=== PATIENT | female | born 1980 | race Caucasian/White ===

== ENCOUNTER 2025-04-04 17:25 | Inpatient (IN) | payer OTHER, SELFPAY ==
[2025-04-04 13:39] VITALS: BP 90/62
[2025-04-04 14:11] LABS: % Basophils 0.2 % (0-2); % Eosinophils 2.3 % (0-6); % Immature Granulocytes 0.7 % (0-0.5); % Lymphocytes 4.3 % (20.5-51.1); % Monocytes 6.7 % (1.7-9.3); % Neutrophils 85.8 % (42.2-75.2); Absolute Eosinophils 0.4 10^3/uL (0-0.7); Absolute Immature Granulocytes 0.1 10^3/uL (0-0.05); Absolute Lymphocytes 0.7 10^3/uL (1.2-3.4); Absolute Neutrophils 13.2 10^3/uL (1.4-6.5); Hematocrit 38.1 % (37.0-47.0); Mean Corp Hgb Conc. 34.1 g/dL (33.0-37.0); Mean Corpuscular Hgb 29.1 pg (27.0-31.0); Mean Corpuscular Volume 85.4 fL (81.0-99.0); Mean Platelet Volume 9.6 fL (7.4-10.4); Nucleated Red Blood Cells % 0 %; Platelet Count 226 10^3/uL (130-400); Red Blood Cell Count 4.46 10^6/uL (4.20-5.40); Red Cell Dist. Width 12.5 % (11.5-14.5); White Blood Cell Count 15.4 10^3/uL (4.8-10.8)
[2025-04-04 14:24] LABS: HCG, Serum Qualitative Screen Negative
[2025-04-04 14:31] LABS: COVID-19 Antigen Negative (Negative)
[2025-04-04 14:39] VITALS: BP 121/73
[2025-04-04 14:39] LABS: ALT (SGPT) 14 U/L (0-35); AST (SGOT) 20 U/L (14-36); Albumin 4.6 g/dl (3.5-5.0); Alkaline Phosphatase 38 U/L (38-126); Blood Urea Nitrogen 13 mg/dl (7-17); Calcium 9.1 mg/dl (8.4-10.2); Carbon Dioxide 24 mmol/L (22-30); Chloride 103 mmol/L (98-107); Glucose 125 mg/dl (70-99); Potassium 3.9 mmol/L (3.5-5.1); Sodium 135 mmol/L (135-145); Total Bilirubin 0.8 mg/dl (0.2-1.3); Total Protein 7.2 g/dl (6.3-8.2); eGFR > 60.00
[2025-04-04 15:00] VITALS: BP 124/66
[2025-04-04 15:02] LABS: Urine Albumin 3+ (Neg - Trace); Urine Bilirubin Negative (Negative); Urine Character Clear (Clear); Urine Color Yellow; Urine Glucose Negative (Negative); Urine Ketone Negative (Negative); Urine Leukocyte 1+ (Negative); Urine Nitrite Negative (Negative); Urine Occult Blood 4+ (Negative); Urine Specific Gravity 1.025 (<1.030); Urine Urobilinogen Negative (Neg - 1+)
--- NOTE | 2025-04-04 15:05 | ED.GENMED ---
History of Present Illness
<ELVA Richard - Last Filed: 04/04/25 21:20>
General
Chief Complaint: Fever
Source: patient and spouse
Time Seen by Provider: 04/04/25 14:32
History of Present Illness
History of Present Illness:
This is a 44 y/o F with a PMH of UTI s/p 5-day course nitrofurantoin who presents with fever x 1 day. She reports having a UTI last week with symptoms that include dysuria, frequency and dull low back pain for which she went to urgent care for.
There was reportedly blood in her urine for which she believed was the start of her menstrual period. She was put on a 5 day course of nitrofurantoin for which she finished on friday, 04/02. Those symptoms have since subsided. On Friday evening,
04/03, she began feeling fatigued and developed a fever overnight. reports a Tmax of 100F at home. She did not take an antipyretic. There is now a dull, constant low back pain that feels better when palpated. She went to urgent care this
morning with fever, back pain and shortness of breath. She feels as though she cannot take in a deep breath. There was reportedly a questionable chest x ray with low O2 sats so she was advised to come to ED. She denies dysuria, urinary frequency,
urinary incontinence suprapubic pain, flank pain, nausea, vomiting, pleuritic chest pain.
She denies a PMH of nephrolithiasis or pyelonephritis. Surgical history noncontributory. Family history noncontributory. No allergies to medications. LMP 03/05/2025.
Past History
<ELVA Richard - Last Filed: 04/04/25 21:20>
Past History
ED Past Medical History: None
Social History
Tobacco: Non-smoker
Personal:
Living: with family
Review of Systems
<ELVA Richard - Last Filed: 04/04/25 21:20>
Review of Systems
Constitutional: Reports fever, fatigue and chills
EENT: Reports no symptoms
Respiratory: Reports cough
Cardiac: Reports no symptoms
ABD/GI: Denies abdominal pain, nausea or vomiting
: Denies dysuria, flank pain or incontinence
Musculoskeletal: Reports back pain
Phy Exam
<Darline Gee [facility] Last Filed: 04/04/25 21:20>
General Physical Exam
General Presentation: mild distress
General age: appears stated age
General Skin: warm
General Habitus: normal
General Mental: alert
Cardiovascular Exam
Cardiovascular Exam: regular rate/rhythm
Pulmonary Exam
Pulmonary Exam: lungs clear and other (cough)
Gastrointestinal Exam
Gastrointestinal Exam: normal bowel sounds, non tender, soft, non distended and no cva tenderness
Neurological Exam
Neurological Exam: alert and oriented x3
Musculoskeletal Exam
Musculoskeletal Exam: back pain
Sepsis
<Darline Gee [facility] Last Filed: 04/04/25 21:20>
Sepsis Screening
Sepsis Assessment: Sepsis
Sepsis Screen
Sepsis Screen: Sepsis
Date: 04/04/25
Time: 21:15
Course
<Darline Gee [facility] Last Filed: 04/04/25 21:20>
Orders/Labs/Results
Orders:
Orders
04/04/25 13:48
CR Chest - 2 Views Urgent
Comment:
Reason For Exam: cough, SOB
04/04/25 13:50
Test Result ONCE
04/04/25 13:54
COVID-19 Antigen Urgent
Source: Nasal Swab
Complete Blood Count/With Diff Urgent
Comprehensive Metabolic Panel Urgent
HCG, Serum Qualitative Screen Urgent
Influenza A+B Rapid Molecular Urgent
MORGAN Source: Nasal Swab
Specimen Description:
Date Specimen was Collected: 04/04/25
Time Specimen was Collected: 13:49
04/04/25 14:38
Urinalysis Reflex To Culture Urgent
Date Specimen was Collected: 04/04/25
Time Specimen was Collected: 13:49
Urine Microscopic Reflex Cult Urgent
Urine Culture Urgent
MORGAN Source: U
Specimen Description:
Date Specimen was Collected: 04/04/25
Time Specimen was Collected: 13:49
04/04/25 14:58
IV Insert/Care/Rem.- Treatment PRN
0.9% Sodium Chloride 1000 ml [Nss] 2,000 ml IV NOW STA
Cefepime HCl [Maxipime] 2,000 mg IV NOW STA
04/04/25 15:00
CT Pe/abd/pel W Urgent
Reason For Exam: Short of breath/hypoxia/fever
Regular
At Your Request: Full Participation
Acetaminophen [Tylenol] 1,000 mg PO NOW STA
04/04/25 15:17
Lactic Acid Q4H
Comment: CANCEL 2nd LACTIC ACID IF 1st LACTIC ACID IS LESS THAN 2
Blood Culture Q30M
MORGAN Source: Blood/Venous
Specimen Description:
Blood Culture Q30M
MORGAN Source: Blood/Venous
Specimen Description:
04/04/25 17:18
Admit/Transfer Patient As Directed
Co-Sign Provider:
Level of Care: Inpatient admission
Assign to:: Medical/Surgical
Physician / Group: louie
Diagnosis: sepsis uti
Reason for Hospitalization: sepsis uti
Expected length of stay greater than two midnights?: Yes
ELOS- Estimated Length of Stay in days: 2
I certify the patient meets the requirements for IP care: Yes
PRN Pain Medication Management As Directed
May give lesser potent ordered pain med per pt: Yes
preference::
Protocol:: Medication orders for pain may be administered in a
manner that supports deferring to patient preference
when the pt is:
- Requesting an ordered lesser potent pain medication.
Least to most potent pain medications are defined
as: acetaminophen < NSAID < tramadol < opioids
(morphine, oxycodone, hydromorphone).
- Requesting a lesser dose of the same medication IF
ORDERED.
- Requesting a less intrusive route of administration
if both routes are prescribed by the provider (PO <
IV).
04/04/25 17:19
Code Status As Directed
Resuscitation Status: Full Code
04/04/25 19:23
0.9% Sodium Chloride 1000 ml [Nss] 1,000 ml IV 100 mls/hr
Acetaminophen [Tylenol] 650 mg PO Q4HPRN PRN
04/04/25 19:23
Activity As Directed
Activity Level: As Tolerated
Vital Signs As Directed
Frequency: Per unit guidelines
DX Deep Vein Thrombosis Video Routine
04/04/25 20:00
Heparin 5,000 units SC Q12
04/05/25 00:00
Cefepime HCl [Maxipime] 2,000 mg IV Q12H
04/05/25 06:00
Complete Blood Count/With Diff IN AM
Comprehensive Metabolic Panel IN AM
04/05/25 08:00
Lactobac/Bifidobac [Visbiome] 1 cap PO DAILY
vitamin D3-vitamin K2 1 cap PO DAILY
Abnormal Lab Results
04/04/25 04/04/25
13:54 14:38
WBC 15.4 H 10^3/uL
(4.8-10.8)
Abs Immat Gran (auto) 0.1 H 10^3/uL
(0-0.05)
Absolute Neuts (auto) 13.2 H 10^3/uL
(1.4-6.5)
Absolute Lymphs (auto) 0.7 L 10^3/uL
(1.2-3.4)
Absolute Monos (auto) 1.0 H 10^3/uL
(0.1-0.6)
Immature Gran % 0.7 H %
(0-0.5)
Neutrophils % 85.8 H %
(42.2-75.2)
Lymphocytes % 4.3 L %
(20.5-51.1)
Glucose 125 H mg/dl
(70-99)
Ur Occult Blood Reflex 4+ A
(Negative)
Leukocyte Esterase Rfl 1+ A
(Negative)
Urine RBC 3-6 A /HPF
(0-2)
Urine Bacteria (Reflex) Many A
(Negative)
Urine Yeast Few A
(Negative)
Urine Albumin (Reflex) 3+ A
(Neg - Trace)
04/04/25 13:54
04/04/25 13:54
Vital Signs
Initial and Last Documented VS:
Initial Vital Signs
Temp Pulse Resp BP Pulse Ox
103.1 F H 93 18 90/62 94
04/04/25 13:39 04/04/25 13:39 04/04/25 13:39 04/04/25 13:39 04/04/25 13:39
Last Documented Vital Signs
Temp Pulse Resp BP Pulse Ox
99.6 F 78 17 109/70 93
04/04/25 19:28 04/04/25 19:28 04/04/25 19:28 04/04/25 19:28 04/04/25 19:28
<Thad Lazar MD - Last Filed: 04/04/25 16:40>
Orders/Labs/Results
Orders:
Orders
04/04/25 13:48
CR Chest - 2 Views Urgent
Comment:
Reason For Exam: cough, SOB
04/04/25 13:50
Test Result ONCE
04/04/25 13:54
COVID-19 Antigen Urgent
Source: Nasal Swab
Complete Blood Count/With Diff Urgent
Comprehensive Metabolic Panel Urgent
HCG, Serum Qualitative Screen Urgent
Influenza A+B Rapid Molecular Urgent
MORGAN Source: Nasal Swab
Specimen Description:
Date Specimen was Collected: 04/04/25
Time Specimen was Collected: 13:49
04/04/25 14:38
Urinalysis Reflex To Culture Urgent
Date Specimen was Collected: 04/04/25
Time Specimen was Collected: 13:49
Urine Microscopic Reflex Cult Urgent
Urine Culture Urgent
MORGAN Source: U
Specimen Description:
Date Specimen was Collected: 04/04/25
Time Specimen was Collected: 13:49
04/04/25 14:58
IV Insert/Care/Rem.- Treatment PRN
0.9% Sodium Chloride 1000 ml [Nss] 2,000 ml IV NOW STA
Cefepime HCl [Maxipime] 2,000 mg IV NOW STA
04/04/25 15:00
CT Pe/abd/pel W Urgent
Reason For Exam: Short of breath/hypoxia/fever
Regular
At Your Request: Full Participation
Acetaminophen [Tylenol] 1,000 mg PO NOW STA
04/04/25 15:17
Lactic Acid Q4H
Comment: CANCEL 2nd LACTIC ACID IF 1st LACTIC ACID IS LESS THAN 2
Blood Culture Q30M
MORGAN Source: Blood/Venous
Specimen Description:
Blood Culture Q30M
MORGAN Source: Blood/Venous
Specimen Description:
04/04/25 17:18
Admit/Transfer Patient As Directed
Co-Sign Provider:
Level of Care: Inpatient admission
Assign to:: Medical/Surgical
Physician / Group: louie
Diagnosis: sepsis uti
Reason for Hospitalization: sepsis uti
Expected length of stay greater than two midnights?: Yes
ELOS- Estimated Length of Stay in days: 2
I certify the patient meets the requirements for IP care: Yes
PRN Pain Medication Management As Directed
May give lesser potent ordered pain med per pt: Yes
preference::
Protocol:: Medication orders for pain may be administered in a
manner that supports deferring to patient preference
when the pt is:
- Requesting an ordered lesser potent pain medication.
Least to most potent pain medications are defined
as: acetaminophen < NSAID < tramadol < opioids
(morphine, oxycodone, hydromorphone).
- Requesting a lesser dose of the same medication IF
ORDERED.
- Requesting a less intrusive route of administration
if both routes are prescribed by the provider (PO <
IV).
04/04/25 17:19
Code Status As Directed
Resuscitation Status: Full Code
04/04/25 19:23
0.9% Sodium Chloride 1000 ml [Nss] 1,000 ml IV 100 mls/hr
Acetaminophen [Tylenol] 650 mg PO Q4HPRN PRN
04/04/25 19:23
Activity As Directed
Activity Level: As Tolerated
Vital Signs As Directed
Frequency: Per unit guidelines
DX Deep Vein Thrombosis Video Routine
04/04/25 20:00
Heparin 5,000 units SC Q12
04/05/25 00:00
Cefepime HCl [Maxipime] 2,000 mg IV Q12H
04/05/25 06:00
Complete Blood Count/With Diff IN AM
Comprehensive Metabolic Panel IN AM
04/05/25 08:00
Lactobac/Bifidobac [Visbiome] 1 cap PO DAILY
vitamin D3-vitamin K2 1 cap PO DAILY
Abnormal Lab Results
04/04/25 04/04/25
13:54 14:38
WBC 15.4 H 10^3/uL
(4.8-10.8)
Abs Immat Gran (auto) 0.1 H 10^3/uL
(0-0.05)
Absolute Neuts (auto) 13.2 H 10^3/uL
(1.4-6.5)
Absolute Lymphs (auto) 0.7 L 10^3/uL
(1.2-3.4)
Absolute Monos (auto) 1.0 H 10^3/uL
(0.1-0.6)
Immature Gran % 0.7 H %
(0-0.5)
Neutrophils % 85.8 H %
(42.2-75.2)
Lymphocytes % 4.3 L %
(20.5-51.1)
Glucose 125 H mg/dl
(70-99)
Ur Occult Blood Reflex 4+ A
(Negative)
Leukocyte Esterase Rfl 1+ A
(Negative)
Urine RBC 3-6 A /HPF
(0-2)
Urine Bacteria (Reflex) Many A
(Negative)
Urine Yeast Few A
(Negative)
Urine Albumin (Reflex) 3+ A
(Neg - Trace)
04/04/25 13:54
04/04/25 13:54
Vital Signs
Initial and Last Documented VS:
Initial Vital Signs
Temp Pulse Resp BP Pulse Ox
103.1 F H 93 18 90/62 94
04/04/25 13:39 04/04/25 13:39 04/04/25 13:39 04/04/25 13:39 04/04/25 13:39
Last Documented Vital Signs
Temp Pulse Resp BP Pulse Ox
99.6 F 78 17 109/70 93
04/04/25 19:28 04/04/25 19:28 04/04/25 19:28 04/04/25 19:28 04/04/25 19:28
<ELVA Richard - Last Filed: 04/04/25 21:20>
MDM/Problems Addressed
Differential Diagnosis Includes:
Partially treated pyelonephritis vs hydronephrosis vs PE vs viral infection
MDM/Problems Addressed:
This is a 44 y/o F with a PMH of UTI s/p 5-day course nitrofurantoin who presents with fever x 1 day, low back pain, shortness of breath and headache. Temp 103.1, borderline low O2 sats. WBC 15.4. U/A contaminated specimen. No pathology noted on CT
chest/abd/pelvis. Due to meeting SIRS criteria with no definitive source of infection, recommend admission to medicine.
<ELVA Richard - Last Filed: 04/04/25 21:20>
*Critical Care Note
Total Time (30-74mins, 75-104mins- exclusive of procedures): Not Applicable
<Thad Lazar MD - Last Filed: 04/04/25 16:40>
*Radiology
Radiology exam reviewed: preliminary read by ED provider (Negative chest x-ray) and other (No obvious acute findings on CT. No pulmonary emboli. No pneumonia. No pyelonephritis. No obstructing stone. No obvious appendicitis although not
visualized.)
*Pulse Oximetry
Patient hypoxic: no (92%)
<Thad Lazar MD - Last Filed: 04/04/25 16:40>
Update Note
Update Note:
Patient appears better after fluids and Tylenol. However pulse ox still remains 92%. No definitive explanation for her symptom complex. Still leaning towards a partially treated pyelonephritis. At this time warrants inpatient management
antibiotics cultures
ED Attending Note
<ELVA Richard - Last Filed: 04/04/25 21:20>
-
Portions of this chart may have been created with voice recognition software.� Occasional wrong word or��sound alike� substitutions may have occurred due to the inherent limitations of voice recognition software.
<Thad Lazar MD - Last Filed: 04/04/25 16:40>
ED Attending Note
Patient seen and examined by attending physician: Yes
I performed the substantive portion of visit, reviewed & personally made and approve the management plan that is documented in note by myself or UMBERTO.: Yes
ED Attending Note:
44-year-old healthy female treated via a telehealth call about a week ago for presumed UTI. Had urgency frequency dysuria at that time some low back pain. Was treated with Macrodantin. Urinary symptoms resolved however low back pain continued she
developed fever overnight. Also noted to have a slight cough. Noted to be hypoxic via urgent care is sent here for further care.
On exam patient is a healthy appearing 44-year-old female but appears moderately ill. She is borderline hypoxic. She is an occasional very dry cough. However lungs are relatively clear. No wheezing rhonchi or rales. Regular rate and rhythm no
murmur. Abdomen soft and nontender. No liver or spleen no rebound or guarding no CVA tenderness. She is good lower extremity strength. Plantar dorsiflexion of the feet are normal. Able to straight leg raise. No rash.
Impression is UTI symptoms with back pain with previous treatment with a Macrodantin. Differential would include pyelonephritis, Mahamed with obstructing kidney stone, psoas abscess, spinal process which is unlikely. With respiratory symptoms and low
pulse ox would also consider pneumonia not visual by x-ray, secondary PE. Workup in progress. Fluids antibiotics.
1640... Patient appears much better. Was able to ambulate to bathroom. However pulse ox now remains 92%. No obvious explanation for her fever back pain recent UTI symptoms. Suspect partially treated pyelonephritis. Possibly evaluate lower
oxygen levels or from poor inspirations. However warrants inpatient management at this time. Very low suspicion for appendicitis. Abdomen is nontender.
Discharge Plan
Departure
Patient Disposition: Admit
Date of Disposition: 04/04/25
Time of Disposition: 16:33
Admit to: Med/Surg
Presentation/result/management discussed w/ accepting MD/DO: Hospitalist
Discharge Problem:
sepsis, possible pyelonephritis
Interventions
Interventions:
*Risk Screen - Suicide Last Done: 04/04/25 13:39
*General Assessment Last Done: 04/04/25 13:39
*Neglect/Abuse Screening Last Done: 04/04/25 13:39
*ED- Fall Risk Assessment Last Done: 04/04/25 14:17
*ED COVID-19 Vaccine History Last Done: 04/04/25 14:17
*Nursing Disposition Last Done: 04/04/25 19:25
ED- Neurological Assessment Last Done: 04/04/25 14:17
ED-Skin Assessment Last Done: 04/04/25 14:17
Discharge Date and Time
Discharge Date/Time: 04/04/25 19:25
[2025-04-04] MEDS: NSS 2000 ML IV (15:15)
[2025-04-04] MEDS: MAXIPIME 2000 MG IV ×2 (15:15→23:12)
[2025-04-04] MEDS: TYLENOL 1000 MG PO (15:16)
[2025-04-04 15:25] LABS: Urine Mucus Many; Urine Squamous Cell >30 /LPF (Few)
[2025-04-04 15:26] LABS: Urine Bacteria Many (Negative)
[2025-04-04 15:27] LABS: Urine Amorphous Seen
[2025-04-04 15:28] LABS: Urine Yeast Few (Negative)
[2025-04-04 15:49] LABS: Lactic Acid 1.3 mmol/L (0.7-2.0)
--- NOTE | 2025-04-04 17:24 | HPS.HSE ---
Family Physician
-
Family Physician: Radha Gonzalez
Chief Complaint
-
fever
History of Present Illness
44-year-old female without past medical history presenting with fever for 1 day as well as lower back pain. She had UTI last week with symptoms include dysuria, frequency and a lower back pain for which she went to urgent care. There was blood in
her urine which she thought was the start of her menstrual period she was started on 5-day course of nitrofurantoin which she finished on 04/02. Symptoms have since subsided apart from some residual lower back pain. On 04/03 she began feeling
fatigue and fever overnight. She had temperature of 100. She denies urinary symptoms. Denies abdominal pain.
She now has dull constant lower back pain that feels better when palpated. Urgent care this morning with fever and back pain shortness of breath. She feels as though she cannot take in a deep breath. She reportedly had low O2 saturation told to
come to the ED. She denies urinary symptoms, suprapubic pain, flank pain or nausea or vomiting or pleuritic chest pain.
She has some diarrhea initially after taking nitrofurantoin which is resolved.
She denies history of nephrolithiasis or pyelonephritis.
Medical History
Past Medical History
Past Medical History: Reports None
Past Surgical History: Reports Other (wisdom teeth )
Social History
Tobacco: Non-smoker
Alcohol: None
Drug: None
Family History
Family History: Not pertinent
Allergies / Home Medications
Allergies reflects when Allergies were last updated in [facility].
Home Medications with original date entered in [facility]
Allergy/Medication List:
Allergies
Allergy/AdvReac Type Severity Reaction Status Date / Time
No Known Allergies Allergy Verified 04/04/25 13:46
Home Medications
Lactobac no.2-Bifidobac no.1-S. thermo 112.5 billion cell capsule (Visbiome) 1 cap PO DAILY 04/04/25
vitamin D3 125 mcg (5,000 unit)-vitamin K2 90 mcg capsule 1 cap PO DAILY 04/04/25
Review of Systems
-
History Source: Patient
A 12 point ROS was completed and negative except as noted: Yes
Constitutional: Reports No Symptoms
EENT: Reports No Symptoms
Respiratory: Reports No Symptoms
Cardiac: Reports No Symptoms
Abdomen/GI: Reports No Symptoms
: Reports See HPI
Musculoskeletal: Reports See HPI
Skin: Reports No Symptoms
Neurological: Reports No Symptoms
Endocrine: Reports No Symptoms
Hematologic/Lymphatic: Reports No Symptoms
Psych: Reports No Symptoms
Physical Exam
Vital Signs
Vital Signs
Temp Pulse Resp BP Pulse Ox
103.1 F H 93 18 124/66 94
04/04/25 13:39 04/04/25 13:39 04/04/25 13:39 04/04/25 15:00 04/04/25 15:16
Physical Exam
General: Well Developed, Well Nourished and No Apparent Distress
HEENT: NormoCephalic, Moist mucous membranes and Atraumatic
Respiratory: Clear
Cardiac: S1/S2 and Regular Rhythm; No Murmur or Rub
GI: Soft, Non Tender, Non Distended and Normal Bowel Sounds; No Organomegaly
Rectal: Deferred by Provider
Musculoskeletal: No Clubbing, No Cyanosis and No Edema
Skin: No Rash
Neuro: Nonfocal/grossly intact
Laboratory Results
-
04/04/25 13:54
04/04/25 13:54
Laboratory Results
Lactic Acid Cancelled 04/04/25 19:00
Total Bilirubin 0.8 mg/dl (0.2-1.3) 04/04/25 13:54
AST 20 U/L (14-36) 04/04/25 13:54
ALT 14 U/L (0-35) 04/04/25 13:54
Alkaline Phosphatase 38 U/L (38-126) 04/04/25 13:54
Data Reviewed
-
Lab Data: Labs Reviewed by me
Old Records: Reviewed
Impression/Plan
-
IMPRESSION:
PLAN:
# Sepsis (fever, tachycardia, leukocytosis) and lower back pain presumably secondary to persistent UTI/pyelonephritis
- Urinalysis unimpressive
-COVID and flu negative
-CT PE and abdomen pelvis does not show any acute abnormality, mild nonspecific right hilar lymphadenopathy, hepatomegaly stable,
-Blood cultures pending
- Patient may have residual UTI/pyelonephritis although UA and CT scan not correlating
-IV fluids
-Cefepime
# Mild hypoxemia could be secondary to shallow breathing
-Continue to monitor
Full code
DVT prophylaxis�heparin
Regular diet
--- NOTE | 2025-04-04 19:21 | PTCARENOTE ---
Pt received from ED to [facility]2. Pt oriented to room and call white.
[2025-04-04 19:28] VITALS: BP 109/70; BMI 22.0
[2025-04-04] MEDS: NSS 1000 IV (19:56)
[2025-04-04] MEDS: STERILE WATER FOR INJECTION 10 ML IV (23:12)
[2025-04-04 23:23] VITALS: BP 121/63
[2025-04-05 05:52] LABS: ALT (SGPT) 11 U/L (0-35); AST (SGOT) 15 U/L (14-36); Albumin 3.3 g/dl (3.5-5.0); Alkaline Phosphatase 36 U/L (38-126); Blood Urea Nitrogen 10 mg/dl (7-17); Calcium 8.1 mg/dl (8.4-10.2); Carbon Dioxide 22 mmol/L (22-30); Chloride 111 mmol/L (98-107); Estimated Creatinine Clearance 101 ml/min; Glucose 108 mg/dl (70-99); Potassium 3.8 mmol/L (3.5-5.1); Sodium 137 mmol/L (135-145); Total Bilirubin 0.6 mg/dl (0.2-1.3); Total Protein 5.6 g/dl (6.3-8.2); eGFR > 60.00
[2025-04-05 05:54] LABS: % Basophils 0.2 % (0-2); % Eosinophils 6.4 % (0-6); % Immature Granulocytes 0.6 % (0-0.5); % Lymphocytes 7.5 % (20.5-51.1); % Monocytes 8.4 % (1.7-9.3); % Neutrophils 76.9 % (42.2-75.2); Absolute Eosinophils 0.6 10^3/uL (0-0.7); Absolute Immature Granulocytes 0.1 10^3/uL (0-0.05); Absolute Lymphocytes 0.8 10^3/uL (1.2-3.4); Absolute Monocytes 0.8 10^3/uL (0.1-0.6); Absolute Neutrophils 7.7 10^3/uL (1.4-6.5); Hematocrit 32.5 % (37.0-47.0); Hemoglobin 10.9 g/dL (12.0-16.0); Mean Corp Hgb Conc. 33.5 g/dL (33.0-37.0); Mean Corpuscular Hgb 28.7 pg (27.0-31.0); Mean Corpuscular Volume 85.5 fL (81.0-99.0); Mean Platelet Volume 9.7 fL (7.4-10.4); Nucleated Red Blood Cells % 0 %; Platelet Count 195 10^3/uL (130-400); Red Cell Dist. Width 12.7 % (11.5-14.5)
[2025-04-05] MEDS: NSS 1000 IV (05:59)
[2025-04-05 07:49] VITALS: BP 108/63
[2025-04-05] MEDS: VISBIOME 1 CAP PO (08:37)
--- NOTE | 2025-04-05 08:52 | W.PN.HOSP.TC ---
Today's Communication/Plan
-
Antibiotics
Assessment / Plan
Assessment / Plan
Physical exam:
General: Acutely ill
HEENT: Normocephalic, Atraumatic and Moist Mucous Membranes
Respiratory: Clear to Auscultation; Negative Wheezes, Rales or Rhonchi
Cardiac: Regular Rhythm and S1/S2
GI: Soft, Nontender and Nondistended
Musculoskeletal: No Clubbing, No Cyanosis and No Edema
Neuro: Awake, Alert and Oriented, no neurological deficit
Psych: Calm
A/P:
# Sepsis (fever, tachycardia, leukocytosis) and lower back pain presumably secondary to persistent UTI/pyelonephritis or partially treated UTI:
-Improving
-WBC 15.4-->10
- Continue antibiotics, IV cefepime
- Follow-up cultures
- Seen CT scan of the abdomen and pelvis
- Stop IV fluid
- Possible discharge in a.m. if cultures remain negative
# URI, suspect viral but cannot rule out bacterial pneumonia:
- Seen chest x-ray
- Add guaifenesin
- Can do CT of the chest but since antibiotics would cover pulmonary and processes not sure management would be different therefore hold on on further testing for now.
DVT prophylaxis:
Heparin SQ
CODE STATUS:
Full code
Time spent 35-minutes
Anticipated Discharge: Within 24 hours
Subjective/Interval History
-
Date of Service: April 05, 2025
Patient tells me she had dysuria a week ago and improving but started having cough and shortness of breath over the last couple of days. Afebrile today
Objective Data
-
Labs:
Laboratory Results
04/05/25
05:05
WBC 10.0
Hgb 10.9 L
Hct 32.5 L
Plt Count 195
Sodium 137
Potassium 3.8
Chloride 111 H
Carbon Dioxide 22
BUN 10
Creatinine 0.7
Glucose 108 H
Calcium 8.1 L
Total Bilirubin 0.6
AST 15
ALT 11
Alkaline Phosphatase 36 L
Vital Signs:
Vital Signs
Temp Pulse Resp BP Pulse Ox
99.8 F 70 16 108/63 94
04/05/25 07:49 04/05/25 07:49 04/05/25 07:49 04/05/25 07:49 04/05/25 07:49
[2025-04-05] MEDS: STERILE WATER FOR INJECTION 10 ML IV ×2 (12:12→23:22)
[2025-04-05] MEDS: MAXIPIME 2000 MG IV ×2 (12:13→23:22)
[2025-04-05] MEDS: MUCINEX 600 MG PO ×2 (12:31→20:29)
--- NOTE | 2025-04-05 15:18 | CM ---
warehouse delivery manager reviewed patient's chart and met with patient and patient lives with her spouse and 3 children in a 2 story home patient is independent with adl's and ambulation, no dme, patient drives, home when stable, no needs.
Plan; Home when stable, patient requested that case picker up in [facility] pharmacy on [address] as her preferred pharmacy.
[2025-04-05 15:35] VITALS: BP 110/65
[2025-04-05 23:31] VITALS: BP 113/64
--- NOTE | 2025-04-06 04:19 | DOWNTIME ---
Addendum entered by Megan Campbell RN 04/06/25 14:11:
Downtime was 04/06/2025 from 0100 to 04/06/2025 at 0415
Original Note:
There was a [employer] Client Unit Control Worker Downtime on 04/05/2025 from 0100 to 04/06/2025 at 0415. Downtime documentation of patient's care, including medication administrations, has been reconciled in the electronic record per guidelines. Refer to the
patient's paper chart under the miscellaneous tab to see printed paper medication records and downtime forms.
[2025-04-06] MEDS: TYLENOL 650 MG PO (06:15)
[2025-04-06 06:49] LABS: % Basophils 0.4 % (0-2); % Eosinophils 13.6 % (0-6); % Immature Granulocytes 0.2 % (0-0.5); % Lymphocytes 23.7 % (20.5-51.1); % Monocytes 12.8 % (1.7-9.3); % Neutrophils 49.3 % (42.2-75.2); Absolute Eosinophils 0.7 10^3/uL (0-0.7); Absolute Lymphocytes 1.2 10^3/uL (1.2-3.4); Absolute Monocytes 0.6 10^3/uL (0.1-0.6); Absolute Neutrophils 2.4 10^3/uL (1.4-6.5); Hematocrit 31.5 % (37.0-47.0); Hemoglobin 10.5 g/dL (12.0-16.0); Mean Corp Hgb Conc. 33.3 g/dL (33.0-37.0); Mean Corpuscular Hgb 28.6 pg (27.0-31.0); Mean Corpuscular Volume 85.8 fL (81.0-99.0); Mean Platelet Volume 9.8 fL (7.4-10.4); Nucleated Red Blood Cells % 0 %; Platelet Count 180 10^3/uL (130-400); Red Blood Cell Count 3.67 10^6/uL (4.20-5.40); Red Cell Dist. Width 12.8 % (11.5-14.5); White Blood Cell Count 4.9 10^3/uL (4.8-10.8)
[2025-04-06 07:19] LABS: Blood Urea Nitrogen 9 mg/dl (7-17); Calcium 8.2 mg/dl (8.4-10.2); Carbon Dioxide 24 mmol/L (22-30); Chloride 110 mmol/L (98-107); Estimated Creatinine Clearance 101 ml/min; Glucose 92 mg/dl (70-99); Potassium 3.9 mmol/L (3.5-5.1); Sodium 140 mmol/L (135-145); eGFR > 60.00
[2025-04-06] MEDS: VISBIOME 1 CAP PO (07:44)
[2025-04-06] MEDS: MUCINEX PO ×2 (07:44→07:55)
[2025-04-06 08:13] VITALS: BP 106/61
--- NOTE | 2025-04-06 09:25 | W.PN.HOSP.TC ---
Today's Communication/Plan
-
Discharge planning today
Assessment / Plan
Assessment / Plan
Physical exam:
General: No acute distress
HEENT: Normocephalic, Atraumatic and Moist Mucous Membranes
Respiratory: Clear to Auscultation; Negative Wheezes, Rales or Rhonchi
Cardiac: Regular Rhythm and S1/S2
GI: Soft, Nontender and Nondistended
Musculoskeletal: No Clubbing, No Cyanosis and No Edema
Neuro: Awake, Alert and Oriented, no neurological deficit
Psych: Calm
A/P:
# Sepsis (fever, tachycardia, leukocytosis) and lower back pain presumably secondary to persistent UTI/pyelonephritis or partially treated UTI:
-Improving
-WBC 15.4-->4.9
- Continue antibiotic but switch Cefepime to oral Levaquin today (checked EKG and QTc acceptable)
- Follow-up cultures. Repeated urine culture pending but clinically well so we will discharge today
- Seen CT scan of the abdomen and pelvis
- Stop IV fluid
- Plan to discharge today
# URI, suspect viral but cannot rule out bacterial pneumonia:
- Seen chest x-ray
- Add guaifenesin
- Can do CT of the chest but since antibiotics would cover pulmonary and processes not sure management would be different therefore hold on on further testing for now. Discussed with patient and and agreeable.
DVT prophylaxis:
Heparin SQ
CODE STATUS:
Full code
Time spent 35-minutes
Anticipated Discharge: Today
Subjective/Interval History
-
Date of Service: April 06, 2025
Patient feels well today. No more fever
Objective Data
-
Labs:
Laboratory Results
04/06/25
05:45
WBC 4.9
Hgb 10.5 L
Hct 31.5 L
Plt Count 180
Sodium 140
Potassium 3.9
Chloride 110 H
Carbon Dioxide 24
BUN 9
Creatinine 0.7
Glucose 92
Calcium 8.2 L
Vital Signs:
Vital Signs
Temp Pulse Resp BP Pulse Ox
98.2 F 47 14 106/61 96
04/06/25 08:13 04/06/25 08:13 04/06/25 08:13 04/06/25 08:13 04/06/25 08:13
I&O
04/05/25 04/06/25 04/07/25
06:59 06:59 06:59
Intake Total 660 / 660
Balance 660 / 660
[2025-04-06] MEDS: LEVAQUIN 750 MG PO (09:40)
--- NOTE | 2025-04-06 12:07 | W.DCSUMMARY ---
Discharge Summary
Discharge Data
Date of Admission: 04/04/25
Date of Discharge: 04/06/25
-
Pending Results: No
Hospital Course
Patient 44 years old female with no significant past medical history came into the hospital with recurrent fevers. Patient had experienced urinary tract infection symptoms and was treated with nitrofurantoin for 1 week through telemedicine and she
also developed URI symptoms 24 hours prior to her presentation. She was treated with IV cefepime. Her blood cultures remain sterile. Her urine culture was positive but had some contamination so urine culture was repeated and results are still
pending but given she is clinically improved and her white blood cell count trending down to normal and she is afebrile she has been switched to oral antibiotics and she will be discharged today.
Discharge Plan
-
Patient Disposition: Home (Routine Discharge)
Discharge Diagnosis/Procedures: Urinary tract infection. Acute bronchitis.
Diet: Regular
Activity: As tolerated
Blood Work: Please PCP to order CBC, BMP within 1 week
Referrals:
Radha Gonzalez CRNP [Family Provider, Family Practice] - in less than 1 week
Prescriptions:
New
levofloxacin 750 mg Tablet
750 mg PO DAILY 5 Days Qty: 5 0RF
Continued
Visbiome 112.5 billion cell Capsule
1 cap PO DAILY
vitamin D3-vitamin K2 125-90 mcg Capsule
1 cap PO DAILY
Discharge Orders:
Discharge Patient (As Directed); Ordered 04/06/25
Ordered By: Lawrence Ingram
Discharge Date and Time
Discharge Date/Time: 04/06/25 14:51
Print Language: ICELANDIC
--- NOTE | 2025-04-06 12:22 | CM ---
Chart reviewed patient is for discharge to home today no needs.
Plan; Home no needs.
== END 2025-04-06 14:51 | disposition home or self-care (01) | DRG 872 ==
LOC: 4 WEST ACU 17:25
PROVIDERS: Emergency Medicine; ADMITTING PHYSICIAN Hospitalist; ATTENDING PHYSICIAN Hospitalist; EMERGENCY PHYSICIAN Emergency Medicine; FAMILY PHYSICIAN Family Medicine
DX: A41.9 Sepsis, unspecified organism (principal); N12 Tubulo-interstitial nephritis, not specified as acute or chronic; J20.9 Acute bronchitis, unspecified; R09.02 Hypoxemia
CPT/HCPCS: 71046; 71275; 74177; 80048; 80053; 81003; 81015; 83605; 84703; 85025; 87040; 87086; 87502; 87811; 93005; 96361; 96374; 99285; Q9967